=== PATIENT | male | born 1940 | race Caucasian/White ===

== ENCOUNTER 2019-04-11 11:01 | Emergency (ER) | payer MEDICARE ==
--- NOTE | 2019-04-11 12:42 | RAD ---
EXAM: 4 views of the left elbow HISTORY: Elbow pain after fall COMPARISON: None FINDINGS: No elbow effusion is seen. There is no evidence of acute fracture or dislocation. No signi ficant degenerative changes are seen. An enthesophyte is seen along the posterior aspect of the olecranon. Moderate posterior soft tissue swelling is present. IMPRESSION: Soft tissue swelling without evidence of acute osseous abnormality.
== END 2019-04-11 13:28 | disposition home or self-care (01) ==
LOC: MADERS 11:01
DX: M70.22 Olecranon bursitis, left elbow (principal); I10 Essential (primary) hypertension; E78.00 Pure hypercholesterolemia, unspecified; J44.9 Chronic obstructive pulmonary disease, unspecified; F17.210 Nicotine dependence, cigarettes, uncomplicated; Z79.899 Other long term (current) drug therapy